=== PATIENT | male | born 1990 | race African-American/Black ===

== ENCOUNTER 2017-05-11 06:06 | Emergency (ER) | payer SELFPAY ==
[2017-05-11 06:10] VITALS: BMI 24.2
[2017-05-11] MEDS ORDERED: NS 1000 ML 1,000 ML ONE (06:12)
[2017-05-11] MEDS ORDERED: DILAUDID INJ ONE (06:12)
[2017-05-11] MEDS ORDERED: DILAUDID INJ IVP ONE (06:13)
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
[2017-05-11 06:15] VITALS: BP 119/83
[2017-05-11] MEDS ORDERED: XYLOCAINE 1% and EPINEPHRINE 1:100,000 ONE (06:28)
[2017-05-11] MEDS ORDERED: NS 1000 ML 1,000 ML IV SCH (07:00)
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
[2017-05-11] MEDS ORDERED: NEOSPORIN OINT TOP ONE (07:35)
[2017-05-11] MEDS ORDERED: ZOFRAN INJ 4 MG VIAL ONE (07:38)
[2017-05-11] MEDS ORDERED: ZOFRAN INJ 4 MG VIAL IVP ONE (07:39)
[2017-05-11] MEDS ORDERED: NEOSPORIN OINT ONE (07:43)
[2017-05-11] MEDS ORDERED: ADACEL TDaP IM ONE ×2 (08:21→08:26)
== END 2017-05-11 09:17 | disposition home or self-care (01) ==
LOC: ER 06:06
DX: S09.93XA Unspecified injury of face, initial encounter (principal); S01.01XA Laceration without foreign body of scalp, initial encounter; S01.511A Laceration without foreign body of lip, initial encounter; Y00.XXXA Assault by blunt object, initial encounter; Y92.9 Unspecified place or not applicable
CPT/HCPCS: 70486; 90471; 96367; 96374; 99283; A4222; J2001; J2405

== ENCOUNTER 2017-05-12 08:05 | Emergency (ER) | payer SELFPAY ==
[2017-05-12 08:09] VITALS: BP 118/79; BMI 20.3
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
== END 2017-05-12 09:16 | disposition home or self-care (01) ==
LOC: ER 08:26
DX: S09.93XA Unspecified injury of face, initial encounter (principal); S01.01XA Laceration without foreign body of scalp, initial encounter; Y04.0XXA Assault by unarmed brawl or fight, initial encounter; Y92.9 Unspecified place or not applicable
CPT/HCPCS: 99281; 99282